=== PATIENT | female | born 1945 | race Two or more races ===

== ENCOUNTER 2017-02-23 07:14 | Day surgery (SDC) | payer MEDICARE, MEDICAID ==
[~2017-02-23 07:14] MED LIST: Buffered Lidocaine 0.9% SYRIN* 5 ML/SYR SYRINGE INTRADERM ONE
[2017-02-23] MEDS ORDERED: Famotidine IV* 10 MG/ML 2 ML (20 mg) ONE (07:34)
[2017-02-23] MEDS ORDERED: Ondansetron INJ* 2 MG/ML VIAL IV PRN (08:01)
[2017-02-23] MEDS ORDERED: Acetaminophen TAB* 325 MG PO PRN (08:01)
[2017-02-23] MEDS ORDERED: PROCHLORPERAZINE INJ 5 MG/ML 2 ML VIAL IV PRN (08:01)
[2017-02-23] MEDS ORDERED: DiMENhydriNATE IV* 50 MG/ML VIAL IV PUSH PRN (08:01)
[2017-02-23] MEDS ORDERED: Levalbuterol 0.63MG/3ML NEB* UNIT OF USE INH PRN (08:01)
[2017-02-23] MEDS ORDERED: Lidocaine 1% INJ* 10 MG/ML 30 ML SDV ONE (08:04)
[2017-02-23] MEDS ORDERED: Midazolam* 1 MG/ML 2 ML VIAL (2 MG) ONE (08:07)
[2017-02-23] MEDS ORDERED: fentaNYL* 50 MCG/ML 2 ML VIAL (100 MCG VIAL) ONE (08:30)
[2017-02-23] MEDS ORDERED: Ibuprofen TAB* 600 MG ONE (09:31)
[2017-02-23 09:34] VITALS: BP 143/80
--- NOTE | 2017-02-23 13:12 | OP ---
DATE OF OPERATION: 02/23/17 [facility] DATE OF : 43 SURGEON: Lacey Grayson MD NUCLEAR POWERPLANT MECHANIC: DIMAS Dickson ANESTHESIA: Local MAC. PRE-OP DIAGNOSIS: Left ring finger trigger finger. POST-OP DIAGNOSIS: Left ring finger trigger finger. OPERATIVE PROCEDURE: Left ring finger trigger release. ESTIMATED BLOOD LOSS: Zero. TOURNIQUET TIME: About 5 minutes. INDICATION OF PROCEDURE: Donna is a 71-year-old woman with painful locking of her left ring finger. She has failed conservative treatment now and presents for trigger release of the left ring finger. DESCRIPTION OF PROCEDURE: The patient was brought to the operating room, was given a sedation anesthetic and a local infiltration of 10 cc of 1% plain lidocaine in the palm of her left hand. The skin of her left hand and forearm was prepped and draped in the usual sterile fashion. The hand and forearm were exsanguinated and the tourniquet elevated to 250 mmHg. A transverse incision was made centered at the A1 sharon of the left ring finger. We dissected bluntly through the subcutaneous tissue down to the A1 sharon. The digital neurovascular bundles were retracted by the library clerical assistant, Tayla Neville. The A1 sharon was incised longitudinally, completely releasing the flexor tendons, which were in good condition. There was some mild tenosynovitis and this was debrided. The wound was irrigated and the skin edges were reapproximated with 4-0 nylon suture. The wound was dressed with Xeroform, 4x4 , Webril, and an Swapnil wrap. The patient tolerated the procedure well and was brought to the recovery room in good condition. [id number]/[facility] #: [id number] [facility]
== END 2017-02-23 09:30 | disposition home or self-care (01) ==
LOC: OREAST 07:14
PROVIDERS: ATTEND Orthopaedic Surgery
DX: M65.342 Trigger finger, left ring finger (principal); J45.909 Unspecified asthma, uncomplicated; M19.90 Unspecified osteoarthritis, unspecified site; Z68.43 Body mass index [BMI] 50.0-59.9, adult; K21.9 Gastro-esophageal reflux disease without esophagitis
CPT/HCPCS: A9270-GY; J2250; J3010

== ENCOUNTER 2017-09-08 19:39 | Emergency (ER) | payer MEDICARE, MEDICAID ==
[2017-09-08 20:04] VITALS: BP 119/87
--- NOTE | 2017-09-08 20:23 | UC ---
General HPI - HPI Summary HPI Summary: encounter conducted in Sinhala, accompanied by daughter, spouse; patient states she was walking in park yesterday with family members when she started having aches and pains all over her body. She was given 2 aspirins by family members. She has been very thirsty and has been drinking a lot of fluids and urinating plenty as well. Denies nasal d/c, cough, vomiting, nausea or diarrhea. - History of Current Complaint Chief Complaint: UCGeneralIllness Stated Complaint: BACK PAIN,ACHES,TINGLING Time Seen by Provider: 09/08/17 20:16 Hx Obtained From: Patient Onset/Duration: Sudden Onset, Lasting Hours Onset Severity: Mild Current Severity: Moderate Pain Intensity: 6 Associated Signs & Symptoms: Positive: Fever - Allergy/Home Medications Allergies/Adverse Reactions: Allergies Allergy/AdvReac Type Severity Reaction Status Date / Time No Known Allergies Allergy Verified 09/08/17 20:06 Home Medications: Home Medications NK [No Home Medications Reported] 09/08/17 [History Confirmed 09/08/17] PMH/Surg Hx/FS Hx/Imm Hx Previously Healthy: Yes - Surgical History Surgical History: Yes Surgery Procedure, Year, and Place: 1985-hysterectomy. CATARACTS BOTH EYES - Family History Known Family History: Positive: Unknown - Social History Alcohol Use: Rare Substance Use Type: None Smoking Status (MU): Never Smoked Tobacco Have You Smoked in the Last Year: No - Immunization History Most Recent Influenza Vaccination: 01/02 Most Recent Tetanus Shot: approx 2009 Review of Systems Constitutional: Fever, Chills, Fatigue Musculoskeletal: Arthralgia All Other Systems Reviewed And Are Negative: Yes Physical Exam Triage Information Reviewed: Yes Appearance: No Pain Distress, Obese Vital Signs: Initial Vital Signs Temp 100.8 F 09/08/17 19:58 Pulse 115 09/08/17 19:58 Resp 14 09/08/17 19:58 BP 119/87 09/08/17 19:58 Pulse Ox 92 09/08/17 19:58 Vital Signs Reviewed: Yes Eyes: Positive: Conjunctiva Clear ENT: Positive: Hearing grossly normal, Pharynx normal, TMs normal, Uvula midline Neck: Positive: Supple, Nontender, No Lymphadenopathy Respiratory: Positive: Chest non-tender, Lungs clear, Normal breath sounds, No respiratory distress, No accessory muscle use Cardiovascular: Positive: RRR, No Murmur, Pulses Normal, Brisk Capillary Refill Abdomen Description: Positive: No Organomegaly, Soft, McBurney's Point Tenderness, Other: - SLR negative , Laura negative Course/Dx - Course Course Of Treatment: Tender RLQ r/o Acute AP, transfer to ER - Differential Dx - Multi-Symptom Provider Diagnoses: Acute abdomen Discharge - Sign-Out/Discharge Documenting (check all that apply): Discharge/Admit/Transfer - Discharge Plan Condition: Guarded Disposition: TRANS HIGHER LVL OF CARE FAC Patient Education Materials: Acute Abdominal Pain (ED) Referrals: Neel Marroquin MD [Primary Care Provider] - - Billing Disposition and Condition Condition: GUARDED Disposition: Trans Higher Lvl of Care Fac
== END 2017-09-08 20:40 | disposition short-term general hospital (02) ==
LOC: UCEAST 19:39
DX: R10.9 Unspecified abdominal pain (principal); R52 Pain, unspecified; E66.9 Obesity, unspecified
CPT/HCPCS: 81003; 99212; G0463

== ENCOUNTER 2017-09-08 20:53 | Emergency (ER) | payer MEDICARE, MEDICAID ==
[2017-09-08] MEDS ORDERED: NS 0.9% 1000 ML*IV.FLUID IV ONE (21:14)
[2017-09-08] MEDS ORDERED: Vancomycin(*) 1,500 MG in NS 0.9% 250 ML* 250 ML IVPB ONE (21:21)
[2017-09-08] MEDS ORDERED: Acetaminophen TAB* 325 MG PO ONE (21:21)
[2017-09-08] MEDS ORDERED: Piperacillin/Tazobac ADVAN(*) 3.375 GM in NS 0.9% 100 ML* 100 ML IVPB ONE (21:21)
[2017-09-08] MEDS ORDERED: Morphine VIAL* 4 MG/ML VIAL (1 ml vial) IV ONE (21:22)
[2017-09-08 21:47] LABS: ABS Basophils 0 10^3/ul (0-0.2); ABS Eosinophils 0.1 10^3/ul (0-0.6); ABS Lymphocytes 0.9 10^3/ul (1.0-4.8); ABS Monocytes 0.5 10^3/ul (0-0.8); ABS Neutrophils 3.7 10^3/ul (1.5-7.7); ABS Nucleated RBC 0 10^3/ul; Eosinophil % 1.4 % (0-6); Hematocrit 39 % (35-47); Hemoglobin 13.6 g/dl (12.0-16.0); Lymphocyte % 16.7 % (25-47); Mean Corpuscular HGB Conc 35 g/dl (31-36); Mean Corpuscular Hemoglobin 32 pg (27-31); Mean Corpuscular Volume 93 fL (80-97); Nucleated Red Blood Cells % 0; Platelet Count 166 10^3/ul (150-450); Red Blood Count 4.21 10^6/ul (4.00-5.40); Red Cell Distribution Width 14 % (10.5-15); White Blood Count 5.1 10^3/ul (3.5-10.8)
--- NOTE | 2017-09-08 21:50 | RAD ---
INDICATION: Fever COMPARISON: December 27, 2013 TECHNIQUE: An AP portable view obtained at 2145 hours is submitted. FINDINGS: Bones/Soft Tissues: There are no acute bony findings. Cardiomediastinal: The cardiomediastinal silhouette is unchanged. There is uncoiling of the thoracic aorta. Lungs: There is mild interstitial prominence Pleura: There are no significant effusions. Other: None IMPRESSION: MILD INTERSTITIAL PROMINENCE WITHOUT CHANGE WHEN ALLOWING FOR AP PORTABLE TECHNIQUE. SUGGEST FOLLOW-UP INDICATED
[2017-09-08 21:57] LABS: EGFR Non-African American 86.5 (>60)
[2017-09-08] MEDS ORDERED: Iohexol 300* (CONTRAST) 10 ML SDV IV ONE (21:59)
[2017-09-08 22:10] LABS: INR 1.07 (0.77-1.02)
[2017-09-09 00:05] LABS: Urine Appearance Clear; Urine Blood 1+ (Negative); Urine Color Straw; Urine Ketones Negative (Negative); Urine Protein Negative (Negative); Urine Specific Gravity 1.017 (1.010-1.030); Urine Urobilinogen Negative (Negative)
[2017-09-09 01:41] VITALS: BP 121/65
--- NOTE | 2017-09-09 03:27 | ED ---
Robin Goodwin SooYoung, scribed for Yasmeen Reza MD on 09/08/17 at 2115 . Abdominal Pain/Female - HPI Summary HPI Summary: A 71 y/o F presents to ED with c/o RLQ abd pain onset a few days and worsening yesterday. Pt rates the pain as 6 out of 10. Family is helping to interpret. Associated sx: fever, generalized full-body aches, loss of appetite, "has not used bathroom.". Denies vomiting, dysuria, hematuria. Pain rated as 6 out of 10. Pt states the ride to ED was painful. Pt hasn't eaten since yesterday. Denies taking any medication today. NKA. - History of Current Complaint Chief Complaint: EDAbdPain Stated Complaint: ABD PAIN Time Seen by Provider: 09/08/17 21:08 Hx Obtained From: Patient, Family/Product Analyst - interpreting Onset/Duration: Lasting Days, Still Present Timing: Constant Severity Initially: Moderate Severity Currently: Moderate Pain Intensity: 6 Pain Scale Used: 0-10 Numeric Location: Discrete At: RLQ Associated Signs and Symptoms: Positive: Fever, Other: - Pos: loss of appetite, full-body aches. Neg: dysuria, hematuria. Negative: Vomiting Allergies/Adverse Reactions: Allergies Allergy/AdvReac Type Severity Reaction Status Date / Time No Known Allergies Allergy Verified 09/08/17 21:12 PMH/Surg Hx/FS Hx/Imm Hx Previously Healthy: No Endocrine/Hematology History: Denies: Hx Diabetes, Hx Thyroid Disease Cardiovascular History: Denies: Hx Hypertension, Hx Pacemaker/ICD Respiratory History: Reports: Hx Asthma - ROUTINE INHALERS FOR Denies: Hx Chronic Obstructive Pulmonary Disease (COPD) GI History: Reports: Hx Gastroesophageal Reflux Disease Denies: Hx Ulcer Musculoskeletal History: Reports: Hx Arthritis Sensory History: Reports: Hx Cataracts, Hx Contacts or Glasses - GLASSES Denies: Hx Hearing Aid Opthamlomology History: Reports: Hx Cataracts, Hx Contacts or Glasses - GLASSES Psychiatric History: Denies: Hx Panic Disorder - Surgical History Surgery Procedure, Year, and Place: 1985-hysterectomy. CATARACTS BOTH EYES Hx Anesthesia Reactions: Yes - SEVERE NAUSEA Infectious Disease History: No Infectious Disease History: Denies: Hx Hepatitis, Hx Human Immunodeficiency Virus (HIV), History Other Infectious Disease, Traveled Outside the [place] in Last 30 Days - Family History Known Family History: Positive: Other - neg: family anaesthesia reaction - Social History Occupation: Unemployed Lives: With Family Alcohol Use: Rare Hx Substance Use: No Substance Use Type: Reports: None Hx Tobacco Use: No Smoking Status (MU): Never Smoked Tobacco Have You Smoked in the Last Year: No Review of Systems Positive: Fever, Other - loss of appetite Positive: Abdominal Pain - RLQ Positive: other - "has not used bathroom". Negative: dysuria, hematuria Positive: Other - pos: generalized body-aches All Other Systems Reviewed And Are Negative: Yes Physical Exam - Summary Physical Exam Summary: GENERAL: Patient is a well-developed and nourished F who is lying comfortable in the stretcher. Patient is not in any acute respiratory distress. HEAD AND FACE: Normocephalic EYES: PERRLA, EOMI x 2. EARS: Hearing grossly intact. MOUTH: Oropharynx within normal limits. NECK: Supple, trachea is midline, no adenopathy, no JVD, no carotid bruit. CHEST: Symmetric, no tenderness at palpation LUNGS: Clear to auscultation bilaterally. No wheezing or crackles. CVS: Regular rate and rhythm, S1 and S2 present, no murmurs or gallops appreciated. ABDOMEN: Soft. Bowel sounds are normal. No abdominal abnormal pulsations. Tenderness to RLQ. EXTREMITIES: Full ROM in all major joints, no edema, no cyanosis or clubbing. NEURO: Alert and oriented x 3. No acute neurological deficits. Speech is normal and follows commands. SKIN: Dry and warm Triage Information Reviewed: Yes Vital Signs On Initial Exam: Initial Vitals Temp Pulse Resp BP Pulse Ox 101.4 F 106 18 146/90 92 09/08/17 21:05 09/08/17 21:05 09/08/17 21:05 09/08/17 21:05 09/08/17 21:05 Vital Signs Reviewed: Yes Diagnostics - Vital Signs Vital Signs Temp Pulse Resp BP Pulse Ox 09/08/17 21:05 101.4 F 106 18 146/90 92 - Laboratory Result Diagrams: 09/08/17 21:28 09/08/17 21:28 Lab Statement: Any lab studies that have been ordered have been reviewed, and results considered in the medical decision making process. - Radiology CXR Xray Interpretation: Positive (See Comments) - IMPRESSION: MILD INTERSTITIAL PROMINENCE WITHOUT CHANGE WHEN ALLOWING FOR AP PORTABLE TECHNIQUE. SUGGEST FOLLOW-UP INDICATED. ED physician has reviewed this report and agrees. Radiology Interpretation Completed By: Radiologist - CT CT Abd/Pel CT Interpretation: Positive (See Comments) - 1.FINDING REQUIRING FOLLOW-UP OR FURTHER EVALUATION: Focal thickening in the distal LEFT colon in the LEFT lower quadrant. There is minimal increased attenuation in the adjacent fat. The differential diagnosis includes edema, infectious or inflammatory changes. This is a nonspecific finding. NO obstruction. The differential includes malignancy pending further evaluation. If further evaluation is felt to be indicated, follow-up should be considered with a contrast enema or endoscopy. 2. The appendix is not identified with certainty. 3. Bibasilar fibrotic changes and/ or linear atelectasis. Minimal areas of patchy opacification. Followup examination should be considered in 4 to 6 weeks time, or until there is resolution of the current findings to exclude underlying pathology. 4. Borderline cardiac enlargement. 5. There are changes in the hepatic parenchyma consistent with mild fatty infiltration. 6. LEFT ADRENAL GLAND: There is multilobulated benign adenomatous enlargement of the LEFT adrenal gland. There is typically considered to be an incidental finding. NO specific followup recommended. 7. Minimal RIGHT dilatation of the renal pelvis/collecting system. Differently would include recent or previously passed stone and pyelonephritis. 8. There are nondistended loops of small bowel which are partially air filled and demonstrate air-fluid layers. This can be a normal finding; however the differential diagnosis includes minimal or mild ileus and enteritis. 9. Partially fecal filled colon. NO significant distention. ED physician reviewed this report. CT Interpretation Completed By: Radiologist - EKG 2120 Cardiac Rate: Tachycardia - 103bpm EKG Rhythm: Sinus Tachycardia EKG Interpretation: LVH Re-Evaluation - Re-Evaluation 1 Re-Evaluation Time: 23:41 Change: Improved Comment: Discussing results with pt and family. Requested urine sample. 2 Re-Evaluation Time: 00:56 Change: Improved Comment: Discussing UA results with pt and family. Pt is feeling much better and is ready to be D/C. Will D/C home to follow up with GI. Abdominal Pain Fem Course/Dx - Course Course Of Treatment: A 71 y/o F presents to ED with c/o RLQ abd pain onset a few days and worsening yesterday. Pt rates the pain as 6 out of 10. Family is helping to interpret. Associated sx: fever, generalized full-body aches, loss of appetite, "has not used bathroom.". Denies vomiting, dysuria, hematuria. Pain rated as 6 out of 10. Pt states the ride to ED was painful. Pt hasn't eaten since yesterday. Denies taking any medication today. NKA. Labs reviewed and are WNL. UA shows 1+ blood without distinct evidence of UTI. CXR shows no PNA. A/P CT findings are consistent with recently passed R kidney stone, focal thickening of colon on L side, and large stool burden. Discussed results with pt in great detail. Pt reports feeling much better and is requesting to be d/c home. Fever is likely secondary to viral etiology. Pt is instructed to f/u with GI given findings and CAT scan. Strict return precautions given. Pt is hemodynamically stable at discharge. - Diagnoses Provider Diagnoses: Viral syndrome, Abdominal pain, Colonic thickening Discharge - Sign-Out/Discharge Documenting (check all that apply): Discharge/Admit/Transfer - D/C - Discharge Plan Condition: Stable Disposition: HOME Patient Education Materials: Magnesium Citrate (By mouth), Acute Abdominal Pain (ED), Viral Syndrome (ED) Referrals: Neel Marroquin MD [Primary Care Provider] - Rupert Johnson MD [Medical Doctor] - As Soon As Possible Additional Instructions: As we discussed: Follow up with Dr. Johnson, gastrology, as soon as possible, regarding the colonic thickening. Take Magnesium Citrate which you can purchase over the counter at a pharmacy. Please return to the ED if you experience new or worsening symptoms. The documentation as recorded by the Robin bernal SooYoung accurately reflects the service I personally performed and the decisions made by me, Yasmeen Reza MD.
--- NOTE | 2017-09-09 06:44 | RAD ---
INDICATION: Right lower quadrant pain. Evaluate for acute appendicitis. COMPARISON: CT January 27, 2008 TECHNIQUE: Axial source images were obtained from the hemidiaphragms to the symphysis pubis following administration of oral and intravenous contrast. 127 mL Omnipaque 300 was utilized. Coronal and sagittal reconstructed images were acquired. Lung bases: There is mild linear change in both lung bases most consistent with atelectasis or scarring. Liver: The liver is enlarged with findings of hepatic steatosis. There are no masses. There is no ductal dilatation. Gallbladder: There are no calcified gallstones. There is no evidence of wall thickening or pericholecystic fluid. Spleen: The spleen is normal in size. There are no masses. Pancreas: There is no focal pancreatic mass or ductal dilatation. Adrenal glands: There is no evidence of adrenal mass. Kidneys: The kidneys are normal in size and position. There are prompt nephrograms and there is prompt excretion bilaterally. There are no renal parenchymal masses. There is no evidence of nephrolithiasis. Adenopathy: There is no evidence of adenopathy by size criteria. Fluid collections: There are no free or localized fluid collections. Vessels:There are no significant atherosclerotic changes involving the aorta. There is no focal aneurysm. The iliac vessels are normal in caliber. The IVC appears normal. GI tract: There are no acute CT bowel findings. There is no obstruction. The stomach and small bowel appear normal. The lower GI tract is normal. The cecum, ileocecal valve, and terminal ileum appear normal. The appendix is visualized. There is no periappendiceal inflammatory change. Pelvic organs: There is hysterectomy. There is no adnexal mass Bladder: There are no bladder masses. Abdominal and pelvic soft tissues: There is a tiny fat-containing periumbilical hernia Osseous structures: There are no acute osseous findings. Other: None IMPRESSION: NO ACUTE CT FINDINGS. NO MASS OR INFLAMMATORY CHANGES. NONVISUALIZATION THE APPENDIX
== END 2017-09-09 01:40 | disposition home or self-care (01) ==
LOC: ED 20:53
DX: B34.9 Viral infection, unspecified (principal); R10.31 Right lower quadrant pain; K63.89 Other specified diseases of intestine; R50.9 Fever, unspecified; M79.1 Myalgia; R00.0 Tachycardia, unspecified; J45.909 Unspecified asthma, uncomplicated; K21.9 Gastro-esophageal reflux disease without esophagitis; Z90.710 Acquired absence of both cervix and uterus; R10.9 Unspecified abdominal pain; R52 Pain, unspecified; E66.9 Obesity, unspecified
CPT/HCPCS: 36415; 71045; 74177; 80053; 81003; 81015; 83605; 84484; 85025; 85610; 85730; 87040; 93005; 96365; 96375; 99283; A9270-GY; J2270; J2543; J3370; Q9967

== ENCOUNTER → 2018-05-09 17:09 | Emergency (ER) | payer MEDICARE, MEDICAID ==
[~2018-05-09 17:09] MED LIST changes: -Buffered Lidocaine 0.9% SYRIN* 5 ML/SYR SYRINGE INTRADERM ONE; +Hydrochlorothiazide TAB* 25 MG PO ONE; +Ibuprofen TAB* 600 MG PO ONE
--- NOTE | 2018-05-09 18:55 | ED ---
Upper Extremity Pain - HPI Summary HPI Summary: 72-year-old female presents with left elbow pain for the past couple days. She states she fell a week ago but did not have pain immediately afterwards. States pain is greatest when she tries to move it or moves the wrist. She denies any numbness or tingling. No previous fracture to the area. she has history of high blood pressure but is not currently on medications. Denies any chest pain or shortness of breath. No other symptoms. - History of Current Complaint Chief Complaint: EDExtremityUpper Stated Complaint: LT ARM INJURY Time Seen by Provider: 05/09/18 18:33 - Allergies/Home Medications Allergies/Adverse Reactions: Allergies Allergy/AdvReac Type Severity Reaction Status Date / Time No Known Allergies Allergy Verified 09/08/17 21:12 PMH/Surg Hx/FS Hx/Imm Hx Endocrine/Hematology History: Denies: Hx Diabetes, Hx Thyroid Disease Cardiovascular History: Denies: Hx Hypertension, Hx Pacemaker/ICD Respiratory History: Reports: Hx Asthma - ROUTINE INHALERS FOR Denies: Hx Chronic Obstructive Pulmonary Disease (COPD) GI History: Reports: Hx Gastroesophageal Reflux Disease Denies: Hx Ulcer Musculoskeletal History: Reports: Hx Arthritis Sensory History: Reports: Hx Cataracts, Hx Contacts or Glasses - GLASSES Denies: Hx Hearing Aid Opthamlomology History: Reports: Hx Cataracts, Hx Contacts or Glasses - GLASSES Psychiatric History: Denies: Hx Panic Disorder - Surgical History Surgery Procedure, Year, and Place: 1985-hysterectomy. CATARACTS BOTH EYES Hx Anesthesia Reactions: Yes - SEVERE NAUSEA Infectious Disease History: No Infectious Disease History: Denies: Hx Hepatitis, Hx Human Immunodeficiency Virus (HIV), History Other Infectious Disease, Traveled Outside the [place] in Last 30 Days - Family History Known Family History: Positive: Unknown, Other - neg: family anaesthesia reaction - Social History Alcohol Use: Rare Hx Substance Use: No Substance Use Type: Reports: None Hx Tobacco Use: No Smoking Status (MU): Never Smoked Tobacco Have You Smoked in the Last Year: No Review of Systems Negative: Fever Negative: Chest Pain Negative: Shortness Of Breath Positive: Myalgia - left elbow pain All Other Systems Reviewed And Are Negative: Yes Physical Exam Triage Information Reviewed: Yes Vital Signs On Initial Exam: Initial Vitals Temp Pulse Resp BP Pulse Ox 98.7 F 85 18 168/114 93 05/09/18 17:10 05/09/18 17:10 05/09/18 17:10 05/09/18 17:10 05/09/18 17:10 Vital Signs Reviewed: Yes Appearance: Positive: Well-Appearing Skin: Positive: Warm, Dry Head/Face: Positive: Normal Head/Face Inspection Eyes: Positive: Normal, Conjunctiva Clear ENT: Positive: Pharynx normal Respiratory/Lung Sounds: Positive: Clear to Auscultation, Breath Sounds Present Cardiovascular: Positive: Normal, RRR Musculoskeletal: Positive: Strength/ROM Intact - elbow with pain, Other - tenderness lateral epicondyle, pain greatest with wrist extension, good pulses, good care mgr strength, capillary refill<2secs Neurological: Positive: Normal Psychiatric: Positive: Normal Diagnostics - Vital Signs Vital Signs Temp Pulse Resp BP Pulse Ox 05/09/18 17:10 98.7 F 85 18 168/114 93 - Laboratory Lab Statement: Any lab studies that have been ordered have been reviewed, and results considered in the medical decision making process. - Radiology elbow Radiology Interpretation Completed By: Radiologist Summary of Radiographic Findings: IMPRESSION: #. Negative for fracture. Course/Dx - Course Course Of Treatment: 72-year-old female presents with left elbow pain for the past couple days. She states she fell a week ago but did not have pain immediately afterwards. States pain is greatest when she tries to move it or moves the wrist. She denies any numbness or tingling. No previous fracture to the area. she has history of high blood pressure but is not currently on medications. Denies any chest pain or shortness of breath. No other symptoms. On exam tenderness greatest over left epicondyles. Neurovascularly intact. X-ray shows no fracture. Has pain with wrist extension greater than wrist flexion. Discussed likely has epicondylitis or tendonitis. Told to elevate and rest. Told to follow-up with orthopedic if no improvement. Patient's blood pressure is elevated here. Given dose of hydrochlorothiazide told to follow-up with primary care for continued care about blood pressure. Patient understands agrees plan. - Diagnoses Differential Diagnosis/HQI/PQRI: Positive: Fracture (Closed), Strain, Sprain Provider Diagnoses: Left elbow pain, Elevated blood pressure reading Discharge - Sign-Out/Discharge Documenting (check all that apply): Patient Departure Patient Received Moderate/Deep Sedation with Procedure: No - Discharge Plan Condition: Good Disposition: HOME Patient Education Materials: Elbow Sprain (ED) Referrals: Aristides Arreola DO [Primary Care Provider] - Jem Willis MD [Medical Doctor] - Additional Instructions: use sling for comfort, make sure take out of sling to move shoulder around daily Take Tylenol 6- 8 hours as needed for pain, can use ibuprofen as needed every 12 hours as needed for pain Apply ice, rest, elevate Follow up with ortho if no improvement Return to ED if develop any new or worsening symptoms - Billing Disposition and Condition Condition: GOOD Disposition: Home
[2018-05-09 19:36] VITALS: BP 196/98
== END | disposition home or self-care (01) ==
LOC: ED 17:09
DX: M25.522 Pain in left elbow (principal); R03.0 Elevated blood-pressure reading, without diagnosis of hypertension
CPT/HCPCS: 99282; A9270-GY